=== PATIENT | female | born 2005 | race Caucasian/White ===

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

== ENCOUNTER 2024-03-15 00:44 | Emergency (ER) | payer OTHER, SELFPAY ==
[2024-03-15 00:45] VITALS: BP 129/96; PULSE 91; RESP 16; TEMP 36.4; O2SAT 97; BMI 28.3
[2024-03-15] MEDS: LACTATED RINGERS 1000ML 1,000 ML 999 ML IV (01:12)
[2024-03-15 01:13] LABS: Microscopic, Urine URINE MICROSCOPIC (MICROSCOPIC)
[2024-03-15 01:14] LABS: Blood, Urine Negative (Negative); Glucose,Urine (UA) 1+ (Negative); Leukocyte Esterase,Urine 3+ (Negative); Nitrate,Urine POSITIVE (Negative); Protein,Urine 2+ (Negative)
[2024-03-15 01:16] LABS: Albumin Level 4.4 g/dl (3.5-5.0); Chloride 108 mmol/L (98-107); Sodium 139 mmol/L (136-145)
[2024-03-15 01:19] LABS: Bilirubin,Urine 1+ (Negative); Color,Urine Orange (Yellow)
[2024-03-15 01:19] LABS: Alanine Aminotransferase 27 U/L (12-78); Albumin/Globulin Ratio 1.3 (1.1-1.8); Alkaline Phosphatase 74 U/L (38-126); Aspartate Amino Transferase 31 U/L (14-36); Bilirubin,Total 0.4 mg/dl (0.2-1.3); Blood Urea Nitrogen 8 mg/dl (7-17); Carbon Dioxide 26 mmol/L (22.0-30.0); Creatinine Clearance Estimated 143 mL/min (50-200); Estimated Glomerular Filt Rate 108 ml/min (>60); GFR (African American) 130 ML/MIN (>60); Globulin 3.5 g/dL (1.3-3.2); Total Protein,Serum 7.9 g/dl (6.3-8.2)
[2024-03-15 01:20] LABS: Calcium 8.9 mg/dl (8.4-10.2); Glucose 90 mg/dl (74-100)
[2024-03-15 01:20] LABS: Appearance,Urine Cloudy (Clear); Ketones,Urine TRACE (Negative)
[2024-03-15 01:21] LABS: HCG Qualitative, Serum Negative (Negative)
[2024-03-15 01:24] LABS: Basophils # 0.1 K/mm3 (0-0.2); Basophils % 0.9 % (0.1-2.0); Eosinophils # 0.1 K/mm3 (0.0-0.4); Eosinophils % 1.4 % (0.1-12.0); Hemoglobin 13.9 g/dL (12.2-16.2); Lymphocytes # 2.7 K/mm3 (0.7-4.5); Lymphocytes % 31.8 % (10-50); Mean Corpuscular HGB Conc 31.5 g/dL (31.8-35.4); Mean Corpuscular Volume 91.9 fl (81-99); Mean Platelet Volume 8.1 fl (7.4-10.4); Monocytes # 0.4 K/mm3 (0.1-1.0); Monocytes % 4.7 % (1.7-9.3); Neutrophils # 5.1 K/mm3 (1.8-7.8); Neutrophils % 61.2 % (37.0-80.0); Platelet Count 275 K/mm3 (142-424); Red Blood Count 4.79 M/mm3 (4.20-5.40); Red Cell Distribution Width 13.6 % (11.5-17.5); White Blood Count 8.3 K/mm3 (4.5-13.0)
[2024-03-15 01:32] LABS: INR 0.93 (0.9-1.1); Prothrombin Time 10.5 seconds (10.1-12.5)
[2024-03-15] MEDS: CEFTRIAXONE 1 GM 1 GM in 0.9 % SODIUM CHLORIDE 50 ML IV (01:37)
[2024-03-15] MEDS: KETOROLAC 30MG/ML VIAL 15 MG IV (01:37)
--- NOTE | 2024-03-15 01:37 | ED_ITS ---
Discharge Plan Disposition Patient Disposition: Home, Self-Care Condition: Good Prescriptions Prescriptions: New cefdinir 300 mg capsule 300 mg PO BID 10 Days Qty: 20 0RF ondansetron 4 mg tablet,disintegrating 4 mg PO Q6H PRN (Reason: nausea and vomiting) Qty: 10 0RF No Action amoxicillin 875 mg tablet 875 mg PO Q12H 10 Days Qty: 20 0RF fluticasone propionate [Flonase Allergy Relief] 50 mcg/actuation spray,suspension 1 - 2 spray intranasal DAILY Qty: 16 0RF Rx Instructions: administer into each nostril daily Referrals Follow up/Referrals: Joselito Currie MD [Primary Care Provider] - See instructions Activity Restrictions/Add. Instructions Additional Instructions/Restrictions: You were evaluated in the ER and are appropriate for discharge at this time. Take the prescribed cefdinir as directed, do not skip doses, do not stop taking it early. Take Tylenol, ibuprofen if needed for fevers or pain, do not exceed the recommended doses on the bottle. Take the prescribed ondansetron if needed for nausea. Drink plenty of water. Make an appointment with your primary care doctor for reevaluation in 2 to 3 days. Return to the ER with new, worsening, or otherwise concerning symptoms. Clinical Impressions Clinical Impression: UTI (urinary tract infection), Pyelonephritis Instructions Patient Instructions: DI for Acute Abdominal Pain Print Language Print Language: Turkish Discharge ED Provider: Catrachito Salguero General Adult HPI General Chief complaint: Abdominal Pain Stated complaint: lower abd pain, hip and back pain Time Seen by Provider: 03/15/24 01:05 Mode of Arrival: Ambulatory Source of Information: Patient Limitations: No Limitations Description of Symptoms (Recalled from ER Triage Doc. by RN): Pt presents with lower abdominal pain that radiate into her lower back and hip area since Saturday. Pt states she doesnt have a hx of kidney stones, denies any urinary symptoms, took 2 Azo today. LMP 04/06 History of Present Illness HPI narrative: Otherwise healthy 18-year-old female presents to the ER for complaints of lower abdominal pain radiating to her low back since Saturday. Patient denies any history of kidney stones but does report she had a kidney infection approximately 1 year ago. Patient reports taking Azo today. Most recent menstrual period was at the end of February. Patient reports nausea but no vomiting, she states she has not specifically had burning with urination, she does report taking Tylenol and ibuprofen 24 hours ago. Patient has not had any measured fevers at home. No other associated symptoms. Related Data Previous Rx's ?Medication ?Instructions ?Recorded amoxicillin 875 mg tablet 875 mg PO Q12H 10 days #20 tabs 10/15/22 fluticasone propionate 50 1 - 2 spray intranasal DAILY #16 10/15/22 mcg/actuation nasal grams spray,suspension (Flonase Allergy Relief) cefdinir 300 mg capsule 300 mg PO BID 10 days #20 caps 03/15/24 ondansetron 4 mg disintegrating 4 mg PO Q6H PRN nausea and 03/15/24 tablet vomiting #10 tabs Allergies Allergy/AdvReac Type Severity Reaction Status Date / Time No Known Allergies Allergy Verified 03/26/22 12:53 [facility] Disclaimer: The information contained in this section may have been updated after the patient was seen, as this information can be updated by other users. Medical History No significant past medical history Family History Other No significant family history Social History (Updated 08/06/22 @ 10:45 by Laney Stevenson RN) Smoking Status: Current every day smoker second hand exposure: No alcohol intake: never substance use type: denies use current occupational status: other Travel in the last 8 weeks: None ROS Obtained: Yes All systems reviewed & no additional complaints except as documented Positive ROS per HPI Physical Exam General General appearance: alert and in no apparent distress Head Head exam: atraumatic and normocephalic Eye Eye exam: Present PERRL and EOMI ENT ENT exam: Present mucous membranes moist Neck Neck exam: Present normal inspection and full ROM Chest Chest inspection: Present symmetric chest wall rise Respiratory Respiratory exam: Present normal lung sounds bilaterally; Absent respiratory distress, wheezes or stridor Cardiovascular Cardiovascular exam: Present regular rate and normal rhythm Abdominal Exam Abdominal exam: Present soft and tenderness (Diffuse low abdomen, mild); Absent distention, guarding, rebound or rigidity Extremities Exam Extremities exam: Present full ROM Back Exam Back exam: Present CVA tenderness (R) and CVA tenderness (L); Absent vertebral tenderness Neurological Exam Neurological exam: Present alert and oriented X3; Absent motor sensory deficit Psychiatric Psychiatric exam: Present normal affect and normal mood Skin Skin exam: Present warm and dry Medical Decision Making Medical Records Medical records reviewed: Yes I reviewed the patient's medical records. MR Comment: Patient has previously been evaluated for strep, migraines, and otitis media in the urgent care. Most recent antibiotic that she was prescribed from urgent care was amoxicillin in October 2022. John Inquiry Pt receiving controlled substance: No Vital Signs: 03/15/24 00:45 Temperature 97.6 F Temperature Source Oral Pulse Rate [Left] 91 H Respiratory Rate 16 Blood Pressure [Right Arm] 129/96 H Blood Pressure Mean [Right Arm] 107 Blood Pressure Source [Right Arm] Automatic Cuff Blood Pressure Position [Right Arm] Sitting 02 Sat by Pulse Oximetry 97 Oxygen Delivery Method Room Air Lab Data Lab Results 03/15/24 00:50: Urine Color [place], Urine Appearance Cloudy, Urine pH 6.0, Ur Specific [place] 1.010, Urine Protein 2+ A, Urine Glucose (UA) 1+, Urine Ketones Trace, Urine Blood Negative, Urine Nitrate Positive, Urine Bilirubin 1+ A, Urine Urobilinogen 4.0, Ur Leukocyte Esterase 3+ A 03/15/24 01:05: WBC 8.3, RBC 4.79, Hgb 13.9, Hct 44.0, MCV 91.9, MCH 29.0, MCHC 31.5 L, RDW 13.6, Plt Count 275, MPV 8.1, Neut % (Auto) 61.2, Lymph % (Auto) 31.8, [place] % (Auto) 4.7, Eos % (Auto) 1.4, Baso % (Auto) 0.9, Neut # (Auto) 5.1, Lymph # (Auto) 2.7, [place] # (Auto) 0.4, Eos # (Auto) 0.1, Baso # (Auto) 0.1, PT 10.5, INR 0.93, Sodium 139, Potassium 4.0, Chloride 108 H, Carbon Dioxide 26, Anion Gap 9.0, BUN 8, Creatinine 0.70, Estimated Creat Clear 143, Estimated GFR 108, Est GFR ( Amer) 130, Glucose 90, Calcium 8.9, Total Bilirubin 0.4, AST 31, ALT 27, Alkaline Phosphatase 74, Total Protein 7.9, Albumin 4.4, G lobulin 3.5 H, Albumin/Globulin Ratio 1.3, Serum HCG, Qual Negative 03/15/24 01:05 03/15/24 01:05 Orders (Tests/Meds): ED MEDICATIONS Generic Name Dose Route Start Last Admin Trade Name Freq PRN Reason Stop Dose Admin Lactated Ringer's 1,000 mls @ 999 mls/hr 03/15/24 01:07 03/15/24 01:12 Lactated Ringer's 1000 Ml Bag IV 03/15/24 02:07 999 mls/hr .Q1H1M ONE Administration Ceftriaxone Sodium 1 gm/ 50 mls @ 100 mls/hr 03/15/24 01:33 Sodium Chloride IV 03/15/24 02:02 Q24H ONE Discontinued Medications Generic Name Dose Route Start Last Admin Trade Name Freq PRN Reason Stop Dose Admin Acetaminophen 1,000 mg 03/15/24 01:33 Acetaminophen 500mg Tab PO 03/15/24 01:34 ONCE ONE Ketorolac Tromethamine 15 mg 03/15/24 01:33 Ketorolac 30mg/Ml Vial IV 03/15/24 01:34 ONCE ONE Ondansetron HCl 4 mg 03/15/24 01:33 Ondansetron 4mg Odt SL 03/15/24 01:34 ONCE ONE ORDERS Category Date Time Status CBC w/Auto Diff [Complete Blood Count Auto Diff] Stat Lab 03/15/24 01:05 Completed CMP [Comprehensive Metabolic Panel] Stat Lab 03/15/24 01:05 Completed HCG Qualitative, Serum Stat Lab 03/15/24 01:05 Completed PT INR [Prothrombin Time INR] Stat Lab 03/15/24 01:05 Completed Urinalysis and Microscopic Stat Lab 03/15/24 00:50 Results Urine Culture Stat Micro 03/15/24 00:50 Received Medical Decision Narrative: In summary, this 18-year-old female presents to the emergency department today with low abdominal pain, back pain, nausea. On initial evaluation patient is hemodynamically stable, afebrile, mild tenderness to palpation diffusely across the lower abdomen without rebound or guarding, no rigidity, mild CVA tenderness bilaterally. Differential diagnosis includes but is not limited to urinary tract infection, pyelonephritis, I considered the possibility of appendicitis but have low suspicion for this since patient does not have localizing abdominal pain, also considered possibility of kidney stone however patient is not having symptoms of renal colic has had stable symptoms for multiple days without severe pain. Based on these concerns, I ordered serum labs, urine studies, test. Patient received IV fluids initially in the ER. Labs reviewed and demonstrate no leukocytosis or anemia, platelets normal, PT/INR normal, CMP nonactionable, no findings of kidney dysfunction, test negative, UA positive for findings of infection with 3+ leukocyte esterase, positive nitrates. Patient received IV Rocephin, Toradol, ondansetron, Tylenol. She was updated on her lab findings. I do not believe imaging is indicated at this time. Labs are reassuring against systemic infection and since patient has stable vitals believe she is appropriate for discharge. I prescribed cefdinir, ondansetron for outpatient management. Patient was given instructions on symptomatic management, follow up instructions, and return precautions for the emergency department. Patient indicated understanding and was discharged in stable condition. Critical Care Critical Care Time Critical Care Time: No
[2024-03-15] MEDS: ACETAMINOPHEN 500MG TAB 1000 MG PO (01:38)
[2024-03-15] MEDS: ONDANSETRON 4MG ODT 4 MG SL (01:41)
[2024-03-15 02:01] VITALS: BP 129/96; PULSE 81; RESP 16; TEMP 36.4; O2SAT 98
[2024-03-15 03:04] LABS: Bacteria,Urine 4+ /lpf
--- NOTE | 2024-03-16 09:33 | PC.NURSE ---
discussed prelim urine results with , pt dc with cefdinir, ntd
--- NOTE | 2024-03-17 11:12 | PC.NURSE ---
discussed urine final results with jocelyn Trinh with shan[facility], ntd
== END 2024-03-15 02:02 | disposition home or self-care (01) ==
PROVIDERS: Emergency Provider Emergency Medicine; PCP Family Medicine
DX: N12 Tubulo-interstitial nephritis, not specified as acute or chronic (principal); R10.30 Lower abdominal pain, unspecified; M54.50 Low back pain, unspecified; R11.0 Nausea; F17.200 Nicotine dependence, unspecified, uncomplicated
CPT/HCPCS: 80053; 81001; 84703; 85025; 85610; 87086; 87088; 87186; 96361; 96365; 96375; 99285; J0696; J1885; J7120; Q0162

== ENCOUNTER 2024-03-25 11:49 | Emergency (ER) | payer OTHER, SELFPAY ==
[2024-03-25] VITALS (10 sets, daily range): BP systolic 104–133; BP diastolic 58–83; PULSE 61–79; RESP 16–20; TEMP 36.7–36.9; O2SAT 98–100; BMI 304.1; BMI 29.8
[2024-03-25 12:23] LABS: Apearance,Urine Cloudy (Clear); Color,Urine Dark Yellow (Yellow); Glucose,Urine (UA) Negative (Negative); PH,Urine 5.5 (5.0-8.5); Protein,Urine Negative (Negative)
[2024-03-25 12:24] LABS: Bilirubin,Urine Negative (Negative); Blood, Urine Negative (Negative); Ketones,Urine Negative (Negative); UTC Leukocyte Esterase,Urine Trace (Negative); UTC Nitrate,Urine Negative (Negative); Urobilinogen,Urine 1 EU/dl (0.2)
--- NOTE | 2024-03-25 12:35 | ED_ITS ---
Discharge Plan Disposition Patient Disposition: Home, Self-Care Condition: Good Prescriptions Prescriptions: New dicyclomine 20 mg tablet 20 mg PO QID PRN (Reason: abdominal pain) Qty: 20 0RF ketorolac 10 mg tablet 10 mg PO Q8H PRN (Reason: pain) Qty: 14 0RF Rx Instructions: maximum total duration of 5 days from all oral, intranasal, or parenteral formulations Referrals Follow up/Referrals: Joselito Currie MD [Primary Care Provider] - See instructions Abraham Harrison DO [Staff Physician] - See instructions Activity Restrictions/Add. Instructions Additional Instructions/Restrictions: You were evaluated in the emergency department today. Please follow-up closely with a primary care provider. 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 You may also take Tylenol every 4-6 hours as needed. Return to the emergency department for new or worsening symptoms. Clinical Impressions Clinical Impression: Abdominal pain Stand Alone Forms Stand Alone Forms: Work/School Release Instructions Patient Instructions: DI for Acute Abdominal Pain Print Language Print Language: Italian Discharge ED Provider: Nay Gamino [facility] General Chief complaint: Abdominal Pain Stated complaint: Pain on R side, from shoulder to hip Mode of Arrival: Ambulatory Source of Information: Patient Time Seen by Provider: 03/25/24 12:41 Description of Symptoms (Recalled from Triage Doc. by RN): RIGHT SIDE PAIN, RECENT KIDNEY INFECTION ON THE LEFT HEENT Symptoms (Recalled from RN notes): No Resp Symptoms (Recalled from RN notes): No Skin Symptoms (Recalled from RN notes): No MS Symptoms (Recalled from RN notes): No Functional Status (Recalled from RN notes): WNL History of Present Illness Provider Complaint: Patient states that she was recently seen and treated in the ED for kidney infection but the pain was on her left side States on Saturday she started with pain on her right side of her abdomen that has progressively got worse States the pain in her right lower abdomen is worse with walking, movement and position changes States last BM was yesterday and normal Denies known fever and rates pain a 7 at this time Related Data Previous Rx's ?Medication ?Instructions ?Recorded dicyclomine 20 mg tablet 20 mg PO QID PRN abdominal pain 03/25/24 #20 tabs ketorolac 10 mg tablet 10 mg PO Q8H PRN pain #14 tabs 03/25/24 Allergies Allergy/AdvReac Type Severity Reaction Status Date / Time No Known Allergies Allergy Verified 03/26/22 12:53 Worker's Comp Is this a Worker's Comp case?: No [facility] Disclaimer: The information contained in this section may have been updated after the patient was seen, as this information can be updated by other users. Medical History No significant past medical history Family History Other No significant family history Social History (Updated 08/06/22 @ 10:45 by Laney Stevenson RN) Smoking Status: Current every day smoker second hand exposure: No alcohol intake: never substance use type: denies use current occupational status: other Travel in the last 8 weeks: None ROS Obtained: Yes All systems reviewed & no additional complaints except as documented and Yes Systems reviewed as appropriate & no additional complaints except as documented Constitutional Constitutional: Reports system reviewed and no additional complaints, except as documented and Reports as per HPI ENT Ears, Nose, Mouth, and Throat: Reports system reviewed and no additional complaints, except as documented and Reports as per HPI Cardiovascular Cardiovascular: Reports system reviewed and no additional complaints, except as documented and Reports as per HPI Respiratory Respiratory: Reports system reviewed and no additional complaints, except as documented and Reports as per HPI Gastrointestinal Gastrointestingal: Reports system reviewed and no additional complaints, except as documented, as per HPI and abdominal pain Physical Exam General General appearance: alert and in no apparent distress ENT ENT exam: Present mucous membranes moist Respiratory Respiratory exam: Present normal lung sounds bilaterally; Absent respiratory distress or wheezes Cardiovascular Cardiovascular exam: Present regular rate, normal rhythm and normal heart sounds Abdominal Exam Abdominal exam: Present soft, tenderness (reports tenderness worse in right lower quad with palpation) and Rovsing's sign (reports pain/pressure right lower quad with palpation of left lower quad) Neurological Exam Neurological exam: Present alert, oriented X3 and normal gait Medical Decision Making Medical Records Screening: Per USPSTF and CDC recommendations, given the prevalence of disease in our region, it is our hospital?s policy to screen for HIV and viral Hepatitis for all patients aged 18 and over and those with ongoing risk factors. John Inquiry Pt receiving controlled substance: No John was queried for this patient: No Vital Signs: 03/25/24 12:16 Temperature 98.2 F Temperature Source Oral Pulse Rate [Left Brachial] 73 Respiratory Rate 20 Blood Pressure [Left Arm] 116/58 L Blood Pressure Mean [Left Arm] 77 02 Sat by Pulse Oximetry 98 Lab Data Lab results reviewed: Yes I reviewed the patient's lab results. Lab Results 03/25/24 12:21: Urine Color Dark yellow, Urine Appearance Cloudy, Urine pH 5.5, Ur Specific [place] 1.030, Urine Protein Negative, Urine Glucose (UA) Negative, Urine Ketones Negative, Urine Blood Negative, Urine Nitrate Negative, Urine Bilirubin Negative, Urine Urobilinogen 1, Ur Leukocyte Esterase Trace 03/25/24 12:49 03/25/24 12:49 Orders (Tests/Meds): ORDERS Category Date Time Status Urine Culture Stat Micro 03/25/24 12:21 Ordered Medical Decision Narrative: Patient reports pain in the right side of abdomen worse with movement, walking and position changes since Saturday reports pain is worse today and more so in the right lower quad Denies symptoms of UTI like she had a few weeks ago pain has got progressively worse since Saturday Discussed with patient and due to complaints and upon examination reports pain in right lower quad with palpation and pain/pressure like feeling in right lower quad with palpation of the left lower abdomen (Rovsings sign) therefore will transfer to the ED for further work up and evaluation Patient agreeable with Transfer patient to be moved to room 8
--- NOTE | 2024-03-25 13:34 | ED_ITS ---
Discharge Plan Disposition Patient Disposition: Home, Self-Care Condition: Good Prescriptions Prescriptions: New dicyclomine 20 mg tablet 20 mg PO QID PRN (Reason: abdominal pain) Qty: 20 0RF ketorolac 10 mg tablet 10 mg PO Q8H PRN (Reason: pain) Qty: 14 0RF Rx Instructions: maximum total duration of 5 days from all oral, intranasal, or parenteral formulations Referrals Follow up/Referrals: Joselito Currie MD [Primary Care Provider] - See instructions Abraham Harrison DO [Staff Physician] - See instructions Activity Restrictions/Add. Instructions Additional Instructions/Restrictions: You were evaluated in the emergency department today. Please follow-up closely with a primary care provider. supervisor rod placing your prescriptions and take them as needed for symptoms. You may also take Tylenol every 4-6 hours as needed. Return to the emergency department for new or worsening symptoms. Clinical Impressions Clinical Impression: Abdominal pain Stand Alone Forms Stand Alone Forms: Work/School Release Instructions Patient Instructions: DI for Acute Abdominal Pain Print Language Print Language: [place] Discharge ED Provider: Nay Gamion General Adult HPI <Jeramy De Leon MD - Last Filed: 03/25/24 15:03> General Chief complaint: Abdominal Pain Stated complaint: Pain on R side, from shoulder to hip Time Seen by Provider: 03/25/24 12:41 Mode of Arrival: Ambulatory Source of Information: Patient Limitations: No Limitations Description of Symptoms (Recalled from ER Triage Doc. by RN): r side pain,painful urination History of Present Illness HPI narrative: Please note that above description of symptoms, in this electronic medical record under categorization of recalled from ER triage doctor by RN are reflective of an initial nursing assessment, however, is not reflective of my full history and physical exam that was personally taken and clarified. Consequentially, this preceding description of symptoms, which may include the patient's categorized chief complaint in the EMR, do not reflect my personal clinical impression, and the ultimate description of history of present illness and patient stated complaints should be deferred to this section of the note. Unless stated otherwise or congruent with this section of the note, additional signs, symptoms, or incongruence should be interpreted as inaccurate with my clinical impression. Related Data Previous Rx's ?Medication ?Instructions ?Recorded dicyclomine 20 mg tablet 20 mg PO QID PRN abdominal pain 03/25/24 #20 tabs ketorolac 10 mg tablet 10 mg PO Q8H PRN pain #14 tabs 03/25/24 Allergies Allergy/AdvReac Type Severity Reaction Status Date / Time No Known Allergies Allergy Verified 03/26/22 12:53 PFS <Jeramy De Leon MD - Last Filed: 03/25/24 15:03> [facility] Disclaimer: The information contained in this section may have been updated after the patient was seen, as this information can be updated by other users. Medical History No significant past medical history Family History Other No significant family history Social History (Updated 08/06/22 @ 10:45 by Laney Stevenson RN) Smoking Status: Current every day smoker second hand exposure: No alcohol intake: never substance use type: denies use current occupational status: other Travel in the last 8 weeks: None <Jeramy De Leon MD - Last Filed: 03/25/24 15:03> ROS Obtained: Yes All systems reviewed & no additional complaints except as documented Physical Exam <Jeramy De Leon MD - Last Filed: 03/25/24 15:03> General General appearance: alert and in no apparent distress Head Head exam: atraumatic and normocephalic Eye Eye exam: Present normal appearance, PERRL and EOMI Neck Neck exam: Present normal inspection, full ROM and trachea midline Respiratory Respiratory exam: Present normal lung sounds bilaterally; Absent respiratory distress, wheezes, stridor, accessory muscle use or prolonged expiratory phase Cardiovascular Cardiovascular exam: Present regular rate, normal rhythm and other (Pulses equal symmetric in upper and lower extremities) Abdominal Exam Abdominal exam: Present soft; Absent distention, tenderness, guarding, rebound or pulsatile mass Extremities Exam Extremities exam: Absent edema Neurological Exam Neurological exam: Present alert, oriented X3 and CN II-XII intact; Absent motor sensory deficit Skin Skin exam: Present warm and dry; Absent diaphoresis or erythema Medical Decision Making <Jeramy De Leon MD - Last Filed: 03/25/24 15:03> Medical Records Medical records reviewed: Yes I reviewed the patient's medical records. Screening: Per USPSTF and CDC recommendations, given the prevalence of disease in our region, it is our hospital?s policy to screen for HIV and viral Hepatitis for all patients aged 18 and over and those with ongoing risk factors. John Inquiry Pt receiving controlled substance: No John was queried for this patient: No Vital Signs: 03/25/24 12:16 03/25/24 12:42 03/25/24 13:01 Temperature 98.2 F 98.4 F Temperature Source Oral Oral Pulse Rate 79 Pulse Rate [Left Brachial] 73 77 Respiratory Rate 20 18 Blood Pressure 124/82 Blood Pressure [Left Arm] 116/58 L 124/80 Blood Pressure Mean [Left Arm] 77 94 Blood Pressure Source 02 Sat by Pulse Oximetry 98 99 100 Oxygen Delivery Method Room Air 03/25/24 13:30 03/25/24 14:02 03/25/24 14:30 Temperature Temperature Source Pulse Rate 70 78 70 Pulse Rate [Left Brachial] Respiratory Rate Blood Pressure 121/72 115/79 119/70 Blood Pressure [Left Arm] Blood Pressure Mean [Left Arm] Blood Pressure Source 02 Sat by Pulse Oximetry 98 100 98 Oxygen Delivery Method 03/25/24 15:02 03/25/24 15:31 03/25/24 16:00 Temperature Temperature Source Pulse Rate 78 75 61 Pulse Rate [Left Brachial] Respiratory Rate Blood Pressure 116/83 133/83 104/58 L Blood Pressure [Left Arm] Blood Pressure Mean [Left Arm] Blood Pressure Source 02 Sat by Pulse Oximetry 99 99 99 Oxygen Delivery Method Room Air Room Air Room Air 03/25/24 16:44 Temperature 98.0 F Temperature Source Oral Pulse Rate 75 Pulse Rate [Left Brachial] Respiratory Rate 16 Blood Pressure 126/71 Blood Pressure [Left Arm] Blood Pressure Mean [Left Arm] Blood Pressure Source Automatic Cuff 02 Sat by Pulse Oximetry Oxygen Delivery Method Room Air Lab Data Lab Results 03/25/24 12:21: Urine Color Dark yellow, Urine Appearance Cloudy, Urine pH 5.5, Ur Specific [place] 1.030, Urine Protein Negative, Urine Glucose (UA) Negative, Urine Ketones Negative, Urine Blood Negative, Urine Nitrate Negative, Urine Bilirubin Negative, Urine Urobilinogen 1, Ur Leukocyte Esterase Trace 03/25/24 12:49: WBC 7.8, RBC 4.48, Hgb 13.3, Hct 42.1, MCV 93.9, MCH 29.8, MCHC 31.7 L, RDW 13.4, Plt Count 330, MPV 8.2, Neut % (Auto) 74.6, Lymph % (Auto) 18.4, Millard % (Auto) 5.1, Eos % (Auto) 1.1, Baso % (Auto) 0.8, Neut # (Auto) 5.8, Lymph # (Auto) 1.4, Millard # (Auto) 0.4, Eos # (Auto) 0.1, Baso # (Auto) 0.1, Sodium 139, Potassium 4.0, Chloride 108 H, Carbon Dioxide 25, Anion Gap 10.0, BUN 10, Creatinine 0.80, Estimated Creat Clear 132, Estimated GFR 92, Est GFR ( Amer) 112, Glucose 91, Calcium 9.0, Total Bilirubin 0.6, AST 29, ALT 35, Alkaline Phosphatase 83, Total Protein 8.1, Albumin 4.5, Globulin 3.6 H, Albumin/Globulin Ratio 1.3, Lipase 77, HCG, Quant < 2, HIV 1&2 Antibody Rapid Nonreactive 03/25/24 13:57: Urine Color Yellow, Urine Appearance Clear, Urine pH 6.0, Ur Specific [place] 1.020, Urine Protein Negative, Urine Glucose (UA) Negative, Urine Ketones Negative, Urine Blood Negative, Urine Nitrate Negative, Urine Bilirubin Negative, Urine Urobilinogen 0.2, Ur Leukocyte Esterase 1+ A, Urine RBC None, Urine WBC 10-20, Ur Squamous Epith Cells 10-20, Urine Bacteria Trace, Urine Mucus Trace 03/25/24 12:49 03/25/24 12:49 Orders (Tests/Meds): ED MEDICATIONS Discontinued Medications Generic Name Dose Route Start Last Admin Trade Name Karrie PRN Reason Stop Dose Admin Acetaminophen 1,000 mg 03/25/24 14:59 03/25/24 15:05 Acetaminophen 500mg Tab PO 03/25/24 15:00 1,000 mg ONCE ONE Administration Dicyclomine HCl 20 mg 03/25/24 16:18 03/25/24 16:20 Dicyclomine 10mg Capsule PO 03/25/24 16:19 20 mg ONCE ONE Administration Iopamidol 75 ml 03/25/24 15:03 03/25/24 15:05 Iopamidol-370 (76%);100ml Bottle IV 03/25/24 15:04 75 ml ONCE ONE Administration Ketorolac Tromethamine 15 mg 03/25/24 14:59 03/25/24 15:05 Ketorolac 30mg/Ml Vial IV 03/25/24 15:00 15 mg ONCE ONE Administration Sodium Chloride 10 ml 03/25/24 15:03 03/25/24 15:05 Sodium Chloride 0.9% 10ml Syr (Rad Only) IV 03/25/24 15:04 10 ml ONCE ONE Administration ORDERS Category Date Time Status CT abdomen pelvis w con Stat Cat Scan 03/25/24 14:41 Completed POCUS Point of Care (ER Only) Stat Exams 03/25/24 13:32 Completed CBC w/Auto Diff [Complete Blood Count Auto Diff] Stat Lab 03/25/24 12:49 Completed CMP [Comprehensive Metabolic Panel] Stat Lab 03/25/24 12:49 Completed HCG,Quantitative Stat Lab 03/25/24 12:49 Completed HIV (1&2) Antibody Rapid Stat Lab 03/25/24 12:49 Completed Hep C Ab with Reflex to RNA Stat Lab 03/25/24 12:49 Received Lipase Stat Lab 03/25/24 12:49 Completed Trichomonas Vaginalis, JANEY Stat Lab 03/25/24 13:57 Received UA [Urinalysis and Microscopic] Stat Lab 03/25/24 13:57 Completed Urine Culture Stat Micro 03/25/24 12:07 Received Medical Decision Narrative: 18-year-old female no relevant medical history presenting with abdominal pain. Patient states for the last 2 days she has been having abdominal pain. Is primarily right-sided, does not radiate, associated nausea without vomiting. Last bowel movement was today and normal for her. No abnormal vaginal discharge or bleeding. No urinary symptoms. States that she recently got over a urinary tract infection and finished antibiotic yesterday. Has tried Tylenol Motrin without much help. Nothing in particular makes it better or worse. No fevers or chills, or any other complaints. Currently mild to moderate in intensity. History was obtained via conversation with patient. On arrival, patient hemodynamically stable, alert, oriented x4, appropriate, GCS 15, moving all extremities spontaneously, pupils equal and reactive to light. Full physical exam performed and significant for well-appearing female who is in no acute distress. Abdomen is soft, nondistended. Is tender in right upper quadrant and right lower quadrant. Sahu sign is positive, no McBurney's point tenderness. No peritonitis, rebound or rigidity. No flank tenderness.. Differential includes PUD, gastritis, enteritis, gastroenteritis, pancreatitis, SBO, colitis, diverticulitis, nephrolithiasis, UTI, , cholecystitis, choledocholithiasis, appendicitis, hepatitis, torsion, aortic pathology, mesenteric ischemia among others. Patient placed on continuous cardiac monitoring and continuous pulse ox with initial blood pressure 116/58, heart rate 73, saturation 98% on room air. Patient was given Toradol and acetaminophen for symptomatic management. Independent interpretation of workup demonstrates nonactionable CBC or chemistry, nonactionable urinalysis, negative . Bedside [id number] ultrasound with normal right upper quadrant findings, no abnormalities of the liver or the kidney on the right. Conversation was had with patient regarding home-going versus CT given benign workup and benign abdominal exam, patient opting for CT scan. This was ordered. Prior to CT scan being performed and disposition, care handed off to oncoming physician. Logistics Assistant disclaimer Much of this encounter note is an electronic prototype assembler electronics spoken language to printed text. Electronic prototype assembler electronics of the spoken language may permit errors. Although I have reviewed the note, some errors may still exist. <Nay Gamino, DO - Last Filed: 03/25/24 18:06> Vital Signs: 03/25/24 12:16 03/25/24 12:42 03/25/24 13:01 Temperature 98.2 F 98.4 F Temperature Source Oral Oral Pulse Rate 79 Pulse Rate [Left Brachial] 73 77 Respiratory Rate 20 18 Blood Pressure 124/82 Blood Pressure [Left Arm] 116/58 L 124/80 Blood Pressure Mean [Left Arm] 77 94 Blood Pressure Source 02 Sat by Pulse Oximetry 98 99 100 Oxygen Delivery Method Room Air 03/25/24 13:30 03/25/24 14:02 03/25/24 14:30 Temperature Temperature Source Pulse Rate 70 78 70 Pulse Rate [Left Brachial] Respiratory Rate Blood Pressure 121/72 115/79 119/70 Blood Pressure [Left Arm] Blood Pressure Mean [Left Arm] Blood Pressure Source 02 Sat by Pulse Oximetry 98 100 98 Oxygen Delivery Method 03/25/24 15:02 03/25/24 15:31 03/25/24 16:00 Temperature Temperature Source Pulse Rate 78 75 61 Pulse Rate [Left Brachial] Respiratory Rate Blood Pressure 116/83 133/83 104/58 L Blood Pressure [Left Arm] Blood Pressure Mean [Left Arm] Blood Pressure Source 02 Sat by Pulse Oximetry 99 99 99 Oxygen Delivery Method Room Air Room Air Room Air 03/25/24 16:44 Temperature 98.0 F Temperature Source Oral Pulse Rate 75 Pulse Rate [Left Brachial] Respiratory Rate 16 Blood Pressure 126/71 Blood Pressure [Left Arm] Blood Pressure Mean [Left Arm] Blood Pressure Source Automatic Cuff 02 Sat by Pulse Oximetry Oxygen Delivery Method Room Air Lab Data Lab Results 03/25/24 12:21: Urine Color Dark yellow, Urine Appearance Cloudy, Urine pH 5.5, Ur Specific [place] 1.030, Urine Protein Negative, Urine Glucose (UA) Negative, Urine Ketones Negative, Urine Blood Negative, Urine Nitrate Negative, Urine Bilirubin Negative, Urine Urobilinogen 1, Ur Leukocyte Esterase Trace 03/25/24 12:49: WBC 7.8, RBC 4.48, Hgb 13.3, Hct 42.1, MCV 93.9, MCH 29.8, MCHC 31.7 L, RDW 13.4, Plt Count 330, MPV 8.2, Neut % (Auto) 74.6, Lymph % (Auto) 18.4, Millard % (Auto) 5.1, Eos % (Auto) 1.1, Baso % (Auto) 0.8, Neut # (Auto) 5.8, Lymph # (Auto) 1.4, Millard # (Auto) 0.4, Eos # (Auto) 0.1, Baso # (Auto) 0.1, Sodium 139, Potassium 4.0, Chloride 108 H, Carbon Dioxide 25, Anion Gap 10.0, BUN 10, Creatinine 0.80, Estimated Creat Clear 132, Estimated GFR 92, Est GFR ( Amer) 112, Glucose 91, Calcium 9.0, Total Bilirubin 0.6, AST 29, ALT 35, Alkaline Phosphatase 83, Total Protein 8.1, Albumin 4.5, Globulin 3.6 H, Albumin/Globulin Ratio 1.3, Lipase 77, HCG, Quant < 2, HIV 1&2 Antibody Rapid Nonreactive 03/25/24 13:57: Urine Color Yellow, Urine Appearance Clear, Urine pH 6.0, Ur Specific [place] 1.020, Urine Protein Negative, Urine Glucose (UA) Negative, Urine Ketones Negative, Urine Blood Negative, Urine Nitrate Negative, Urine Bilirubin Negative, Urine Urobilinogen 0.2, Ur Leukocyte Esterase 1+ A, Urine RBC None, Urine WBC 10-20, Ur Squamous Epith Cells 10-20, Urine Bacteria Trace, Urine Mucus Trace Orders (Tests/Meds): ED MEDICATIONS Discontinued Medications Generic Name Dose Route Start Last Admin Trade Name Karrie PRN Reason Stop Dose Admin Acetaminophen 1,000 mg 03/25/24 14:59 03/25/24 15:05 Acetaminophen 500mg Tab PO 03/25/24 15:00 1,000 mg ONCE ONE Administration Dicyclomine HCl 20 mg 03/25/24 16:18 03/25/24 16:20 Dicyclomine 10mg Capsule PO 03/25/24 16:19 20 mg ONCE ONE Administration Iopamidol 75 ml 03/25/24 15:03 03/25/24 15:05 Iopamidol-370 (76%);100ml Bottle IV 03/25/24 15:04 75 ml ONCE ONE Administration Ketorolac Tromethamine 15 mg 03/25/24 14:59 03/25/24 15:05 Ketorolac 30mg/Ml Vial IV 03/25/24 15:00 15 mg ONCE ONE Administration Sodium Chloride 10 ml 03/25/24 15:03 03/25/24 15:05 Sodium Chloride 0.9% 10ml Syr (Rad Only) IV 03/25/24 15:04 10 ml ONCE ONE Administration ORDERS Category Date Time Status CT abdomen pelvis w con Stat Cat Scan 03/25/24 14:41 Completed POCUS Point of Care (ER Only) Stat Exams 03/25/24 13:32 Completed CBC w/Auto Diff [Complete Blood Count Auto Diff] Stat Lab 03/25/24 12:49 Completed CMP [Comprehensive Metabolic Panel] Stat Lab 03/25/24 12:49 Completed HCG,Quantitative Stat Lab 03/25/24 12:49 Completed HIV (1&2) Antibody Rapid Stat Lab 03/25/24 12:49 Completed Hep C Ab with Reflex to RNA Stat Lab 03/25/24 12:49 Received Lipase Stat Lab 03/25/24 12:49 Completed Trichomonas Vaginalis, JANEY Stat Lab 03/25/24 13:57 Received UA [Urinalysis and Microscopic] Stat Lab 03/25/24 13:57 Completed Urine Culture Stat Micro 03/25/24 12:07 Received Medical Decision Narrative: 18-year-old female no relevant medical history presenting with abdominal pain. Patient states for the last 2 days she has been having abdominal pain. Is primarily right-sided, does not radiate, associated nausea without vomiting. Last bowel movement was today and normal for her. No abnormal vaginal discharge or bleeding. No urinary symptoms. States that she recently got over a urinary tract infection and finished antibiotic yesterday. Has tried Tylenol Motrin without much help. Nothing in particular makes it better or worse. No fevers or chills, or any other complaints. Currently mild to moderate in intensity. History was obtained via conversation with patient. On arrival, patient hemodynamically stable, alert, oriented x4, appropriate, GCS 15, moving all extremities spontaneously, pupils equal and reactive to light. Full physical exam performed and significant for well-appearing female who is in no acute distress. Abdomen is soft, nondistended. Is tender in right upper quadrant and right lower quadrant. Sahu sign is positive, no McBurney's point tenderness. No peritonitis, rebound or rigidity. No flank tenderness.. Differential includes PUD, gastritis, enteritis, gastroenteritis, pancreatitis, SBO, colitis, diverticulitis, nephrolithiasis, UTI, , cholecystitis, choledocholithiasis, appendicitis, hepatitis, torsion, aortic pathology, mesenteric ischemia among others. Patient placed on continuous cardiac monitoring and continuous pulse ox with initial blood pressure 116/58, heart rate 73, saturation 98% on room air. Patient was given Toradol and acetaminophen for symptomatic management. Independent interpretation of workup demonstrates nonactionable CBC or chemistry, nonactionable urinalysis, negative . Bedside [id number] ultrasound with normal right upper quadrant findings, no abnormalities of the liver or the kidney on the right. Conversation was had with patient regarding home-going versus CT given benign workup and benign abdominal exam, patient opting for CT scan. This was ordered. Prior to CT scan being performed and disposition, care handed off to oncoming physician. Logistics Assistant disclaimer Much of this encounter note is an electronic prototype assembler electronics spoken language to printed text. Electronic prototype assembler electronics of the spoken language may permit errors. Although I have reviewed the note, some errors may still exist. DO Stevenson: On my assessment of the patient, she is lying comfortably in bed in no acute distress. She complains that she still having right-sided abdominal pain, but abdominal exam is benign. Vitals are normal on cardiac telemetry. Labs are reassuring with normal white count, normal liver enzymes, normal lipase, normal kidney function, urine is contaminated with squamous cells but not a slam dunk for infection, and negative test. CT scan does not demonstrate any acute surgical pathology such as cholecystitis or appendicitis. She also does not have any visualized large ovarian cyst, though she does have some trace pelvic free fluid. This could be related to ruptured ovarian cyst potentially which may cause her pain. She also has prominence of her left ureter but no pain on the left side or urinary symptoms. Right upper quadrant ultrasound reassuring per previous provider. Ultimately, feel we have excluded life-threatening pathology as a cause of the patient's abdominal pain. I feel she is appropriate for discharge with close follow-up with primary care. She was given prescriptions for Bentyl and Toradol for symptomatic improvement of her pain as well as instructions for close outpatient follow-up and strict return precautions. She was discharged after all questions were answered. Procedures <Jeramy De Leon MD - Last Filed: 03/25/24 15:03> Limited Ultrasound Indication:: Limited RUQ ultrasound Indication: Abdominal pain Identified structures: -Gallbladder -Gallbladder wall -Common bile duct -Liver Findings: Sonographic Sahu sign: Absent Gallstones: Absent Sludge: Absent Pericholecystic fluid: Absent Maximal GB wall thickness (mm) (normal is </= 3mm): Normal Common bile duct width (mm) (normal is </= 6mm): Normal Gallbladder width (cm) (normal is < 4cm): Normal Gallbladder length (cm) (normal is < 10cm): Normal Impression: Normal right upper quadrant ultrasound Images were saved to permanent archive The study was technically adequate CPT 98112-41 This study was performed by me, and I personally interpreted all images/videos. Based on my clinical judgement, these images were adequate and did not necessitate further imaging. Critical Care <Jeramy De Leon MD - Last Filed: 03/25/24 15:03> Critical Care Time Critical Care Time: No
[2024-03-25 13:41] LABS: Albumin Level 4.5 g/dl (3.5-5.0); Basophils # 0.1 K/mm3 (0-0.2); Basophils % 0.8 % (0.1-2.0); Chloride 108 mmol/L (98-107); Eosinophils # 0.1 K/mm3 (0.0-0.4); Eosinophils % 1.1 % (0.1-12.0); Hematocrit 42.1 % (37.0-47.0); Hemoglobin 13.3 g/dL (12.2-16.2); Lymphocytes # 1.4 K/mm3 (0.7-4.5); Lymphocytes % 18.4 % (10-50); Mean Corpuscular HGB Conc 31.7 g/dL (31.8-35.4); Mean Corpuscular Hemoglobin 29.8 pg (27.0-31.2); Mean Corpuscular Volume 93.9 fl (81-99); Mean Platelet Volume 8.2 fl (7.4-10.4); Monocytes # 0.4 K/mm3 (0.1-1.0); Monocytes % 5.1 % (1.7-9.3); Neutrophils # 5.8 K/mm3 (1.8-7.8); Neutrophils % 74.6 % (37.0-80.0); Platelet Count 330 K/mm3 (142-424); Red Blood Count 4.48 M/mm3 (4.20-5.40); Red Cell Distribution Width 13.4 % (11.5-17.5); Sodium 139 mmol/L (136-145); White Blood Count 7.8 K/mm3 (4.5-13.0)
[2024-03-25 13:44] LABS: Alanine Aminotransferase 35 U/L (12-78); Albumin/Globulin Ratio 1.3 (1.1-1.8); Alkaline Phosphatase 83 U/L (38-126); Aspartate Amino Transferase 29 U/L (14-36); Bilirubin,Total 0.6 mg/dl (0.2-1.3); Blood Urea Nitrogen 10 mg/dl (7-17); Carbon Dioxide 25 mmol/L (22.0-30.0); Creatinine Clearance Estimated 132 mL/min (50-200); Estimated Glomerular Filt Rate 92 ml/min (>60); GFR (African American) 112 ML/MIN (>60); Globulin 3.6 g/dL (1.3-3.2); Lipase 77 U/L (23-300); Total Protein,Serum 8.1 g/dl (6.3-8.2)
[2024-03-25 13:45] LABS: Glucose 91 mg/dl (74-100)
--- NOTE | 2024-03-25 13:46 | PC.NURSE ---
Lab called and they report they do not have a urine sample. I checked with the [facility] and they state they sent it over an hr ago. I called lab again, s/w Annalise and they states they still can't find it. Pt will try to give another sample.
[2024-03-25 14:02] LABS: HCG,Quantitative < 2 mIU/ml (0-5.42)
--- NOTE | 2024-03-25 14:03 | PC.NURSE ---
Urine sample sent from ER to Lab.
[2024-03-25 14:05] LABS: Microscopic, Urine URINE MICROSCOPIC (MICROSCOPIC)
[2024-03-25 14:14] LABS: Appearance,Urine CLEAR (Clear); Bilirubin,Urine Negative (Negative); Blood, Urine Negative (Negative); Color,Urine YELLOW (Yellow); Glucose,Urine (UA) Negative (Negative); Ketones,Urine Negative (Negative); Leukocyte Esterase,Urine 1+ (Negative); Nitrate,Urine Negative (Negative); Protein,Urine Negative (Negative); Urobilinogen,Urine 0.2 EU/dl (0.2)
--- NOTE | 2024-03-25 14:41 | CT_ITS ---
FINAL REPORT TECHNIQUE: After the administration of oral and intravenous contrast, axial images were obtained through the abdomen and pelvis by computed tomography. The study was performed with techniques to keep radiation dose as low as reasonably achievable, (ALARA). Individual dose reduction techniques using automated exposure control or adjustment of mA and/or kV according to the patient's size were employed. CLINICAL HISTORY: RUQ and RLQ pain with motion, negative US and labs FINDINGS: Abdomen: The lung bases are clear. The liver parenchyma is homogeneous. The gallbladder is present. The spleen, pancreas, and adrenals are unremarkable. There is prominence of the left renal collecting system. No definite obstructing focus is identified. The transition point appears to be at the level of the left UPJ. The aorta is normal in caliber. There is no free fluid or adenopathy. Pelvis: The appendix is not well visualized. The uterus is anteverted. Nabothian cysts are seen in the lower uterine segment. The urinary bladder is unremarkable. There is a small amount of pelvic free fluid. There is no adenopathy. 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 Pelvic free fluid which is nonspecific but favored to be physiologic in reproductive age patient. Reviewed, Interpreted and Dictated by Shmuel Flroes MD Transcribed by Sana Trejo Authenticated and [facility]
[2024-03-25 14:43] LABS: Bacteria,Urine Trace /lpf; Mucus,Urine Trace /lpf
--- NOTE | 2024-03-25 14:51 | PC.NURSE ---
Pt gone to RAD
[2024-03-25 15:04] LABS: HIV (1&2) Antibody Rapid NONREACTIVE (NONREACTIVE)
[2024-03-25] MEDS: SODIUM CHLORIDE 0.9% 10ML SYR (RAD ONLY) 10 ML IV (15:05)
[2024-03-25] MEDS: IOPAMIDOL-370 (76%);100ML BOTTLE 75 ML IV (15:05)
[2024-03-25] MEDS: KETOROLAC 30MG/ML VIAL 15 MG IV (15:05)
[2024-03-25] MEDS: ACETAMINOPHEN 500MG TAB 1000 MG PO (15:05)
[2024-03-25] MEDS: DICYCLOMINE 10MG CAPSULE 20 MG PO (16:20)
[2024-03-26 06:40] LABS: HCV Ab Non Reactive (Non Reactive)
[2024-03-27 21:12] LABS: Trichomonas Vaginalis, NAA Negative (Negative)
[2024-03-28 09:32] LABS: Neisseria gonorrhoeae, NAA Negative (Negative)
--- NOTE | 2024-03-28 17:52 | PC.NURSE ---
CHLAM/CG DISCUSSED WITH DR URBANO, DR URBANO SPOKE WITH PT, RX AND INSTRUCTIONS GIVEN
== END 2024-03-25 16:51 | disposition home or self-care (01) ==
LOC: UTC 12:03 → ER 12:42
PROVIDERS: Emergency Medicine; Nurse Practitioner; Emergency Provider Emergency Medicine; PCP Family Medicine
DX: R10.31 Right lower quadrant pain (principal); A56.00 Chlamydial infection of lower genitourinary tract, unspecified; R10.11 Right upper quadrant pain; R11.0 Nausea
CPT/HCPCS: 74177; 80053; 81001; 81003; 83690; 84702; 85025; 86803; 87086; 87389; 87491; 87591; 87661; 96374; 99284; J1885; Q9967

== ENCOUNTER 2024-06-15 11:41 | Outpatient (CLI) | payer OTHER, SELFPAY ==
--- NOTE | 2024-06-15 11:49 | XR_ITS ---
FINAL REPORT CLINICAL HISTORY: LOW BACK PAIN COMPARISON: None FINDINGS: SACROILIAC JOINTS SERIES Three views were obtained. There is no acute fracture or dislocation. The joint spaces appear normal. The visualized bony structures are well aligned. No soft tissue abnormality is seen. IMPRESSION: No acute bony abnormality. Reviewed, Interpreted and Dictated by Juan C Ramsey III, MD Transcribed by Cindy Gross Authenticated and [facility]
== END 2024-06-15 23:59 | disposition home or self-care (01) ==
LOC: RAD 11:45
PROVIDERS: PCP Internal Medicine Adolescent Medicine; Visit Provider Nurse Practitioner Family
DX: M54.50 Low back pain, unspecified (principal); M25.50 Pain in unspecified joint; G89.29 Other chronic pain
CPT/HCPCS: 72202

== ENCOUNTER 2024-06-18 17:19 | Emergency (ER) | payer OTHER, SELFPAY ==
[2024-06-18 18:15] VITALS: BP 102/51; PULSE 71; RESP 20; TEMP 36.6; O2SAT 98; BMI 32.0
--- NOTE | 2024-06-18 18:26 | EXP.UTC ---
Discharge Plan Disposition Patient Disposition: Home, Self-Care Condition: Good Prescriptions Prescriptions: New amoxicillin 500 mg capsule 500 mg PO TID 7 Days Qty: 21 0RF fluticasone propionate [Flonase Allergy Relief] 50 mcg/actuation spray,suspension 2 spray intranasal DAILY Qty: 16 0RF Rx Instructions: administer into each nostril No Action methocarbamol 500 mg tablet 500 - 1,000 mg PO HS Patient Comments: TAKE 1 OR 2 TABLET(S) BY MOUTH EVERY DAY AT BEDTIME NEEDED FOR MUSCLE SPASMS MAY CAUSE DROWSINESS diclofenac sodium 75 mg tablet,delayed release (DR/EC) 75 mg PO BID Patient Comments: TAKE ONE TABLET BY MOUTH TWICE DAILY --TAKE WITH FOOD-- Referrals Follow up/Referrals: Jeronimo Frey MD [Primary Care Provider] - See instructions Activity Restrictions/Add. Instructions Additional Instructions/Restrictions: *Monitor Temp, Over the counter Motrin or Tylenol as directed/as needed Tylenol every 4 hours and Motrin every 6 hours (as long as your family doctor has told you that you can take it) for fever or pain. and straight to ER if unable to lower temp less than 101.0 after medication given *Warm salt water gargles may help to soothe the throat *Throat Lozenges? *Warm fluids like tea with honey may help to soothe the throat? *Sleep elevated *Humidifier/Vaporizer Your throat swab was sent for culture. Those results are typically sent to your primary care. Be sure to follow up in 2-3 days with your family doctor/primary care physician if no improvement so they can review those result and treat if necessary. If you don?t have a primary care doctor, I recommend you get one but in the mean time, you will have to return to a walk in clinic Follow up IMMEDIATELY for new or worsening symptoms or no Noticeable improvement over the next 48-72 hours. 911 for difficulty breathing or swallowing Clinical Impressions Clinical Impression: Otitis media Instructions Patient Instructions: Middle Ear Infection, Amoxicillin Print Language Print Language: Portuguese Discharge ED Provider: Robyn Nascimento [facility] [place] H[place] General Stated complaint: vomiting, sore throat , ear pain Mode of Arrival: Ambulatory Source of Information: Patient Limitations: No Limitations Time Seen by Provider: 06/18/24 18:26 Description of Symptoms (Recalled from Triage Doc. by RN): PATIENT C/O SORE THROAT AND EARS BURNING X 5 DAYS HEENT Symptoms (Recalled from RN notes): Yes Resp Symptoms (Recalled from RN notes): No Skin Symptoms (Recalled from RN notes): No MS Symptoms (Recalled from RN notes): No Functional Status (Recalled from RN notes): WNL History of Present Illness Provider Complaint: Patient states that she has been having bilateral ear pain and burning and sore throat since Saturday States that she has been taking OTC medications but not helped States today she was still not feeling any better so she came in Related Data Home Medications ?Medication ?Instructions ?Recorded ?Confirmed diclofenac sodium 75 mg 75 mg PO BID 06/18/24 06/18/24 tablet,delayed release methocarbamol 500 mg tablet 500 - 1,000 mg PO HS 06/18/24 06/18/24 Previous Rx's ?Medication ?Instructions ?Recorded amoxicillin 500 mg capsule 500 mg PO TID 7 days #21 caps 06/18/24 fluticasone propionate 50 2 spray intranasal DAILY #16 grams 06/18/24 mcg/actuation nasal spray,suspension (Flonase Allergy Relief) Allergies Allergy/AdvReac Type Severity Reaction Status Date / Time No Known Allergies Allergy Verified 03/26/22 12:53 Worker's Comp Is this a Worker's Comp case?: No [facility] Disclaimer: The information contained in this section may have been updated after the patient was seen, as this information can be updated by other users. Medical History No significant past medical history Family History Other No significant family history Social History (Updated 08/06/22 @ 10:45 by Laney Stevenson RN) Smoking Status: Current every day smoker second hand exposure: No alcohol intake: never substance use type: denies use current occupational status: other Travel in the last 8 weeks: None Have you lived/traveled outside US in past 30 days?: No Contact w/someone who lives/traveled outside US past 30 days?: No Exposure to someone with infectious disease in past 14 days?: No Do you have a fever (greater than 100.4 F or 38 C)?: No Have you tested positive for COVID-19: No Exposed to someone with COVID-19 in past 14 days?: No Do you have a sore throat?: Yes Do you have a cough?: No Do you have any weakness?: No Do you have any diarrhea?: No Are you experiencing any unusual bleeding?: No Do you have any muscle aches/pain?: No Do you have any abdominal pain?: No Are you experiencing loss of taste or smell?: No ROS Obtained: Yes All systems reviewed & no additional complaints except as documented and Yes Systems reviewed as appropriate & no additional complaints except as documented Constitutional Constitutional: Reports system reviewed and no additional complaints, except as documented and Reports as per HPI ENT Ears, Nose, Mouth, and Throat: Reports system reviewed and no additional complaints, except as documented, Reports as per HPI, Reports otalgia and Reports sore throat Cardiovascular Cardiovascular: Reports system reviewed and no additional complaints, except as documented and Reports as per HPI Respiratory Respiratory: Reports system reviewed and no additional complaints, except as documented and Reports as per HPI Gastrointestinal Gastrointestingal: Reports system reviewed and no additional complaints, except as documented and as per HPI Physical Exam General General appearance: alert and in no apparent distress ENT ENT exam: Present mucous membranes moist Expanded ENT Exam TM/Canal exam: Left TM: erythema and Bilateral TM: bulging Throat exam: Present tonsillar erythema Respiratory Respiratory exam: Present normal lung sounds bilaterally; Absent respiratory distress or wheezes Cardiovascular Cardiovascular exam: Present regular rate, normal rhythm and normal heart sounds Abdominal Exam Abdominal exam: Present soft and normal bowel sounds; Absent distention or tenderness Neurological Exam Neurological exam: Present alert, oriented X3 and normal gait Medical Decision Making Medical Records Screening: Per USPSTF and CDC recommendations, given the prevalence of disease in our region, it is our hospital?s policy to screen for HIV and viral Hepatitis for all patients aged 18 and over and those with ongoing risk factors. John Inquiry Pt receiving controlled substance: No John was queried for this patient: No Vital Signs: 06/18/24 18:15 Temperature 97.9 F Temperature Source Oral Pulse Rate [Left Brachial] 71 Respiratory Rate 20 Blood Pressure [Left Arm] 102/51 L Blood Pressure Mean [Left Arm] 68 Blood Pressure Source [Left Arm] Automatic Cuff Blood Pressure Position [Left Arm] Sitting 02 Sat by Pulse Oximetry 98 Oxygen Delivery Method Room Air Lab Data Lab results reviewed: Yes I reviewed the patient's lab results.
[2024-06-18 18:31] LABS: UTC Strep Screen (Rapid) Negative (Negative)
[2024-06-18 18:33] VITALS: BP 102/51; PULSE 71; RESP 20; TEMP 36.6; O2SAT 98
== END 2024-06-18 18:36 | disposition home or self-care (01) ==
PROVIDERS: Emergency Provider Nurse Practitioner; PCP Internal Medicine Adolescent Medicine
DX: H66.93 Otitis media, unspecified, bilateral (principal)
CPT/HCPCS: 87880; 99213; G0381

== ENCOUNTER 2024-07-12 02:40 | Emergency (ER) | payer OTHER, SELFPAY ==
[2024-07-12 02:41] VITALS: BP 114/82; PULSE 88; RESP 16; TEMP 36.6; O2SAT 96; BMI 29.2
--- NOTE | 2024-07-12 02:58 | ED_ITS ---
Discharge Plan Disposition Patient Disposition: Home, Self-Care Condition: Good Prescriptions Prescriptions: No Action methocarbamol 500 mg tablet 500 - 1,000 mg PO HS Patient Comments: TAKE 1 OR 2 TABLET(S) BY MOUTH EVERY DAY AT BEDTIME NEEDED FOR MUSCLE SPASMS MAY CAUSE DROWSINESS diclofenac sodium 75 mg tablet,delayed release (DR/EC) 75 mg PO BID Patient Comments: TAKE ONE TABLET BY MOUTH TWICE DAILY --TAKE WITH FOOD-- amoxicillin 500 mg capsule 500 mg PO TID 7 Days Qty: 21 0RF fluticasone propionate [Flonase Allergy Relief] 50 mcg/actuation spray,suspension 2 spray intranasal DAILY Qty: 16 0RF Rx Instructions: administer into each nostril Referrals Follow up/Referrals: Jeronimo Frey MD [Primary Care Provider] - See instructions Activity Restrictions/Add. Instructions Additional Instructions/Restrictions: Please keep area clean and dry. Monitor for signs of infection. Please follow- up with your primary care provider. Please return to the emergency department if you develop any new or worsening symptoms or become concerned for your health. Clinical Impressions Clinical Impression: Laceration of left wrist Qualifiers: Encounter type: initial encounter Qualified Code(s): S61.512A - Laceration without foreign body of left wrist, initial encounter Instructions Patient Instructions: DI for Laceration Repair Print Language Print Language: Maori Discharge ED Provider: Reggie Parada Adult HPI General Chief complaint: Wound/Laceration Stated [place]: [place] [address] cut on left wrist Time Seen by Provider: 07/12/24 02:40 Mode of Arrival: Ambulatory Source of Information: Patient Limitations: No Limitations Description of Symptoms (Recalled from ER Triage Doc. by RN): Patient reports she was knocking on a window and it shattered and her left had went through the glass, causing a laceration on the left wrist. History of Present Illness HPI narrative: 19-year-old female without significant past medical history presents for laceration to her left wrist. She was knocking on a window when it broke and she cut herself a little bit. She reports it was absolutely not on purpose. She reports that blood little bit before coming. Not sure when her last tetanus shot was. Related Data Home Medications ?Medication ?Instructions ?Recorded ?Confirmed diclofenac sodium 75 mg 75 mg PO BID 06/18/24 06/18/24 tablet,delayed release methocarbamol 500 mg tablet 500 - 1,000 mg PO HS 06/18/24 06/18/24 Previous Rx's ?Medication ?Instructions ?Recorded amoxicillin 500 mg capsule 500 mg PO TID 7 days #21 caps 06/18/24 fluticasone propionate 50 2 spray intranasal DAILY #16 grams 06/18/24 mcg/actuation nasal spray,suspension (Flonase Allergy Relief) Allergies Allergy/AdvReac Type Severity Reaction Status Date / Time No Known Allergies Allergy Verified 03/26/22 12:53 [facility] Disclaimer: The information contained in this section may have been updated after the patient was seen, as this information can be updated by other users. Medical History No significant past medical history Family History Other No significant family history Social History (Updated 08/06/22 @ 10:45 by Laney Stevenson RN) Smoking Status: Current every day smoker second hand exposure: No alcohol intake: never substance use type: denies use current occupational status: other Travel in the last 8 weeks: None Have you lived/traveled outside US in past 30 days?: No Contact w/someone who lives/traveled outside US past 30 days?: No Exposure to someone with infectious disease in past 14 days?: No Do you have a fever (greater than 100.4 F or 38 C)?: No Have you tested positive for COVID-19: No Exposed to someone with COVID-19 in past 14 days?: No Do you have a sore throat?: No Do you have a cough?: No Do you have any weakness?: No Do you have any diarrhea?: No Are you experiencing any unusual bleeding?: No Do you have any muscle aches/pain?: No Do you have any abdominal pain?: No Are you experiencing loss of taste or smell?: No Other Medical History Have you received the Pneumonia Vaccine: No ROS Obtained: Yes All systems reviewed & no additional complaints except as documented Physical Exam General General appearance: alert and in no apparent distress Head Head exam: atraumatic and normocephalic Eye Eye exam: Present normal appearance, PERRL and EOMI ENT ENT exam: Present normal oropharynx and normal external ear exam Neck Neck exam: Present normal inspection and full ROM Chest Chest inspection: Present normal inspection and symmetric chest wall rise; Absent tenderness Respiratory Respiratory exam: Present normal lung sounds bilaterally; Absent respiratory distress Cardiovascular Cardiovascular exam: Present regular rate and normal rhythm Abdominal Exam Abdominal exam: Present soft; Absent distention, tenderness or guarding Extremities Exam Extremities exam: Present other (Normal strength sensation and range of motion of the left hand. There is a approximately 0.5 cm laceration to the left lateral volar wrist); Absent edema or joint swelling Back Exam Back exam: Present normal inspection; Absent tenderness Neurological Exam Neurological exam: Present alert and oriented X3; Absent motor sensory deficit Psychiatric Psychiatric exam: Present normal affect and normal mood Skin Skin exam: Present warm, dry and normal color Lymphatic Lymphatic Findings: no adenopathy Medical Decision Making Medical Records Medical records reviewed: Yes I reviewed the patient's medical records. Screening: Per USPSTF and CDC recommendations, given the prevalence of disease in our region, it is our hospital?s policy to screen for HIV and viral Hepatitis for all patients aged 18 and over and those with ongoing risk factors. John Inquiry Pt receiving controlled substance: No John was queried for this patient: No Vital Signs: 07/12/24 02:41 07/12/24 03:10 Temperature 97.9 F 97.9 F Temperature Source Oral Oral Pulse Rate 72 Pulse Rate [Right Radial] 88 Respiratory Rate 16 16 Blood Pressure 107/72 L Blood Pressure [Right Arm] 114/82 Blood Pressure Mean [Right Arm] 92 Blood Pressure Source Automatic Cuff Blood Pressure Source [Right Arm] Automatic Cuff Blood Pressure Position Supine Blood Pressure Position [Right Arm] Supine 02 Sat by Pulse Oximetry 96 Oxygen Delivery Method Room Air Room Air Lab Data Lab results reviewed: Yes I reviewed the patient's lab results. Orders (Tests/Meds): ED MEDICATIONS Discontinued Medications Generic Name Dose Route Start Last Admin Trade Name Freq PRN Reason Stop Dose Admin Tetanus/Reduced Diphtheria/Acell Pertussis 0.5 ml 07/12/24 02:53 07/12/24 03:01 Tet/Diphth/Pert-Adult 0.5ml Syringe IM 07/12/24 02:54 0.5 ml .ONCE ONE Administration Medical Decision Narrative: 19-year-old female presents with a small laceration to the left volar wrist. Hemostatic. Wound fully explored, no evidence of retained glass. Radiograph was considered but due to history given exam. Wound was copiously irrigated and repaired with skin glue and Steri-Strips. Given instructions regarding symptomatic care. Patient was discharged stable condition after tetanus shot. Procedures Risk/Benefits of Procedure(s) Were Explained: Yes Laceration Laceration 1: Site: upper extremity Side (If applicable): left Description: linear Depth: involves subcutaneous layer Pre-repair: wound explored, irrigated extensively and deep structures intact Skin layer closed with: Dermabond and other (Steri-Strips) Critical Care Critical Care Time Critical Care Time: No
[2024-07-12] MEDS: TET/DIPHTH/PERT-ADULT 0.5ML SYRINGE 0.5 ML IM (03:01)
[2024-07-12 03:10] VITALS: BP 107/72; PULSE 72; RESP 16; TEMP 36.6; O2SAT 98
== END 2024-07-12 03:11 | disposition home or self-care (01) ==
PROVIDERS: Emergency Provider Emergency Medicine; PCP Internal Medicine Adolescent Medicine
DX: S61.512A Laceration without foreign body of left wrist, initial encounter (principal); M25.532 Pain in left wrist; Z23 Encounter for immunization; W25.XXXA Contact with sharp glass, initial encounter; Y93.89 Activity, other specified; Y92.9 Unspecified place or not applicable
CPT/HCPCS: 90471; 90715; 99283

== ENCOUNTER 2025-05-14 11:05 | Outpatient (CLI) | payer SELFPAY ==
[2025-05-14 16:46] LABS: Microscopic, Urine URINE MICROSCOPIC (MICROSCOPIC)
[2025-05-14 17:02] LABS: Bilirubin,Urine Negative (Negative); Color,Urine YELLOW (Yellow); Glucose,Urine (UA) Negative (Negative); Ketones,Urine Negative (Negative); Leukocyte Esterase,Urine 2+ (Negative); PH,Urine 6.0 (5.0-8.5); Protein,Urine TRACE (Negative); Specific Gravity, Urine 1.025 (1.005-1.030); Urobilinogen,Urine 0.2 EU/dl (0.2)
[2025-05-14 17:17] LABS: Bacteria,Urine 2+ /lpf; WBC,Urine TNTC #/hpf (0-3)
--- OUTSIDE RECORDS SUMMARY | 2025-05-18 11:13 | XMS_ITS | Clinical Summary ---
Author Organization [facility] Address [address] [id number] Care Team Providers Care Medical Terminologist Name Role Phone Berenice Myers Primary Care Provider [phone] Allergies No known active allergies Medications methocarbamol (Robaxin) 500 MG tablet 06/15/2024 Active diclofenac (Voltaren) 75 MG EC tablet Take 1 tablet (75 mg) by mouth as needed in the morning and 1 tablet (75 mg) as needed in the evening. 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 Myopia of right eye 02/26/2017 Behavior concern 09/17/2016 Dyslexia 09/17/2016 Mixed receptive-expressive language disorder Wears glasses 09/17/2016 Insulin resistance 05/18/2016 Weight gain 05/18/2016 Acanthosis nigricans 05/14/2016 Rage attacks 03/14/2016 Vitamin D deficiency 03/14/2016 Depression 02/22/2016 Labial adhesions 02/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 Precocious puberty 02/08/2016 Immunizations Immunization Administration Dates Next Due DTaP 06/17/2008, 6,01/26/2005,10/20,2004 HPV 9-Valent 02/10/2018,11/22/2015 Hep A, ped/adol, 2 dose 02/10/2018,01/02/2013 Hep B, Adolescent or Pediatric 01/26/2005,2004,2004 IPV 06/17/2008, 5,2004,08/03 Influenza, injectable, quadr ivalent, preservative free 05/17/2016 MMR 06/17/2008,09/06/2005 Meningococcal MCV4O 11/22/2015 Tdap 11/22/2015 Varicella 01/02/2013,06/21/2005 Family History * Patient is adopted Medical History Relation Name Comments Drug abuse Father Diabetes Maternal Grandfather ADD / ADHD Mother Bipolar disorder Mother Drug abuse Mother Hypertension Other ADD / ADHD Sibling Malig Hyperthermia Neg Hx Relation Name Status Comments Father Maternal Grandfather Mother Other Sibling Social History Tobacco Use Types Packs/Day Years Used Date Smoking Tobacco: Never Passive Smoke Exposure: Never Smokeless Tobacco: Never Tobacco Cessation:Counseling Given: Not Answered Alcohol Use Standard Drinks/Week Comments Never 0 (1 standard drink = 0.6 oz pur e alcohol) Comments No Sex and Gender Information Value Date Recorded Sex Assigned at Not on file Legal Sex Female 7:48 PM EDT Gender Identity Not on file Sexual Orientation Not on file Last Filed Vital Signs Vital Sign Reading Time Taken Comments Blood Pressure 101/65 09/18/2024 1:15 PM EDT Pulse 66 09/18/2024 1:15 PM EDT Temperature 36.2 C (97.2 F) 09/18/2024 12:50 PM EDT Respiratory Rate 13 09/18/2024 1:15 PM EDT Oxygen Saturation 100% 09/18/2024 1:15 PM EDT Inhaled Oxygen Concentration - - Weight 82.3 kg (181 lb 7 oz) 09/18/2024 9:46 AM EDT Height 157.5 cm (5' 2 ) 09/18/2024 9:46 AM EDT Body Mass Index 33.19 09/18/2024 9:46 AM EDT Plan of Treatment Health Maintenance Due Date Last Done Comments [facility]-Chlamydia and Gonorrhea Screening 2004 [facility]-Depression Screening 2004 [facility]-HIV Screening 2004 [facility]-Hepatitis C Screening 2004 [facility]-/Child/Adol SDOH Screenings 2004 [facility]- SDOH Screenings 2022 [facility]-Adult SDOH Screenings 2022 [id number] Vaccine ( season) 2025 [facility]-Influenza Vaccine (#1) 2025 05/17/2016 [facility]-DTaP,Tdap,and Td Vaccines (8 - Td or Tdap) 07/12/2034 07/12/2024, 11/22/2015, 06/17/2008, Additional history exists [facility]-Zoster Vaccines (1 of 2) 2054 01/02/2013, 06/21/2005 [facility]-Hepatitis B Vaccines Completed 005, 2004, 2004 [facility]-HIB Vaccines Completed 06/21/2005, , 2004 [facility]-IPV Vaccines Completed 06/17/2008, , 2004, Additional history exists [facility]-Varicella Vaccines Completed 01/02/2013, 2004 HPV Vaccines Completed 02/10/2018, 11/22/2015 [facility]-Hepatitis A Vaccines Completed 02/10/2018, 12/07 [facility]-Obesity Intervention Completed 09/13/2022, 08/2022 [facility]-Pneumococcal Vaccine: Pediatrics (0 to 5 Years) and At-Risk Patients (6 to 49 Years) Aged Out No longer eligible based on patient's age to complete this topic [facility]-Rotavirus Vaccines Aged Out No lo nger eligible based on patient's age to complete this topic Insurance Se [place] KELLIE BROWN [id number] AETNA [facility] MEDICAID [employer] MEDICAID Care Teams Medical Terminologist Relationship Specialty Start Date End Date Berenice Myers PA [address] [place] [address] PCP - General 11/18/20
== END 2025-05-14 23:59 ==
LOC: LAB.DROPOF 05-18 11:05
PROVIDERS: PCP Internal Medicine Adolescent Medicine; Visit Provider Nurse Practitioner
DX: N39.0 Urinary tract infection, site not specified (principal)
CPT/HCPCS: 81001; 87086; 87088; 87186

== ENCOUNTER 2025-06-13 14:42 | Emergency (ER) | payer SELFPAY ==
[2025-06-13 14:53] VITALS: BP 128/72; PULSE 76; RESP 18; TEMP 37.2; O2SAT 99; BMI 32.1
--- OUTSIDE RECORDS SUMMARY | 2025-06-13 15:09 | XMS_ITS | Clinical Summary ---
Author Organization [facility] Address [address] [id number] Care Team Providers Care Business Operations Coordinator Name Role Phone [place] Analisa WARREN Primary Care Provider [phone] Allergies No known active allergies Medications methocarbamol (Robaxin) 500 MG tablet 06/15/2024 Active diclofenac (Voltaren) 75 MG EC tablet Take 1 tablet (75 mg) by mouth as needed in the morning and 1 tablet (75 mg) as needed in the evening. 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 Myopia of right eye 02/26/2017 Behavior concern 09/17/2016 Dyslexia 09/17/2016 Mixed receptive-expressive language disorder Wears glasses 09/17/2016 Insulin resistance 05/18/2016 Weight gain 05/18/2016 Acanthosis nigricans 05/14/2016 Rage attacks 03/14/2016 Vitamin D deficiency 03/14/2016 Depression 02/22/2016 Labial adhesions 02/22/2016 Precocious puberty 02/08/2016 Resolved Problems Problem Noted Date Diagnosed Date Resolved Date History of strabismus surgery 05/26/2024 05/30/2025 Immunizations Immunization Administration Dates Next Due DTaP [...] [facility]-HIV Screening 2004 [facility]-Hepatitis C Screening 2004 [facility]-Infant/Child/Adol SDOH Screenings 2004 [facility]- SDOH Screenings 2022 [facility]-Adult SDOH Screenings 2022 [id number] Vaccine ( season) 2025 [facility]-Influenza Vaccine (#1) 2025 05/17/2016 [facility]-Pap Smear 2025 [facility]-DTaP,Tdap,and Td Vaccines (8 - Td or [...] patient's age to complete this topic Insurance AETNA [facility] MEDICAID [facility] A[employer]NA [employer] MEDICAID Care Teams Business Operations Coordinator Relationship Specialty Start Date End Date Berenice Myers PA [address] [place] [address] PCP - General 11/18/20
--- NOTE | 2025-06-13 15:17 | ED_ITS ---
<Statement entered by Stevenson Trujillo MD - 06/13/25 16:59> I was consulted by the SATYA, and we discusssed the complexity of the problems being adressed. I approved the treatment and management plan for this patient's care in the Emergency Department, thus performing a substantive portion of the medical decision making. Stevenson Trujillo MD Discharge Plan Disposition Patient Disposition: Home, Self-Care Prescriptions Prescriptions: New cephalexin 500 mg capsule 1,000 mg PO BID 7 Days Qty: 28 0RF Referrals Follow up/Referrals: Jeronimo Frey MD [Primary Care Provider, Internal Medicine] - See instructions Activity Restrictions/Add. Instructions Additional Instructions/Restrictions: Today you were evaluated in the emergency department for a laceration. You had 6 sutures placed in your left wrist, please return to the ED in 7 days to have these removed. Please take the bandage off in 24 hours and leave exposed to air. Take your antibiotics as directed. If you notice increased redness, streaking, drainage, return to the ED. Clinical Impressions Clinical Impression: Laceration Instructions Patient Instructions: DI for Laceration Repair Print Language Print Language: Cape Verdean Discharge ED Provider: Stevenson Trujillo General Adult HPI General Chief complaint: Wound/Laceration Stated complaint: AO cut on left wrist. 06/12. Time Seen by Provider: 06/13/25 15:10 Mode of Arrival: Ambulatory Source of Information: Patient Description of Symptoms (Recalled from ER Triage Doc. by RN): Pt cutt her left wrist around 0200 this morning. Pt states she isnt sure what she cutt it on, but she thinks it was metal. PT was intoxicated at the time of injury, details are unknown. History of Present Illness HPI narrative: patient is a 20-year-old female with no significant PMHx who presents to the ED with complaints of left wrist laceration that occurred last night. Patient states that she does not remember exactly what happened, and had been drinking alcohol, at some point during the night injured her left wrist causing a laceration. Related Data Previous Rx's ?Medication ?Instructions ?Recorded cephalexin 500 mg capsule 1,000 mg (2 x 500 mg) PO BID 7 06/13/25 days #28 caps Allergies Allergy/AdvReac Type Severity Reaction Status Date / Time No Known Allergies Allergy Verified 05/14/25 11:53 [facility] Disclaimer: The information contained in this section may have been updated after the patient was seen, as this information can be updated by other users. Medical History (Updated 06/13/25 @ 15:56 by Radha Lyles APRN) UTI (urinary tract infection) Irregular periods PCOS (polycystic ovarian syndrome) No significant past medical history Surgical History History of kidney surgery History of eye surgery Family History Other No significant family history Social History Smoking Status: Current every day smoker second hand exposure: No alcohol intake: current alcohol intake frequency: holidays/special occasions only substance use type: denies use current occupational status: unemployed Travel in the last 8 weeks?: None household members: significant other housing: house marital status: education level: high school Have you lived/traveled outside [place] in past 30 days?: No Contact w/someone who lives/traveled outside US past 30 days?: No Exposure to someone with infectious disease in past 14 days?: No Do you have a fever (greater than 100.4 F or 38 C)?: No Have you tested positive for COVID-19?: No Exposed to someone with COVID-19 in past 14 days?: No Do you have a sore throat?: No Do you have a cough?: No Do you have any weakness?: No Do you have any diarrhea?: No Are you experiencing any unusual bleeding?: No Do you have any muscle aches/pain?: No Do you have any abdominal pain?: No Are you experiencing loss of taste or smell?: No Other Medical History Have you received the Pneumonia Vaccine: No ROS Obtained: Yes Systems reviewed as appropriate & no additional complaints except as documented Physical Exam General General appearance: alert Eye Eye exam: Present PERRL Respiratory Respiratory exam: Present normal lung sounds bilaterally Cardiovascular Cardiovascular exam: Present regular rate Abdominal Exam Abdominal exam: Present soft Extremities Exam Extremities exam: Present full ROM Neurological Exam Neurological exam: Present alert and oriented X3; Absent motor sensory deficit Psychiatric Psychiatric exam: Present normal affect Skin Skin exam: Present warm, dry and other (2.5 cm laceration noted to anterior L wrist, bleeding controlled, jagged edges ) Medical Decision Making Medical Records Screening: Per USPSTF and CDC recommendations, given the prevalence of disease in our region, it is our hospital?s policy to screen for HIV and viral Hepatitis for all patients aged 18 and over and those with ongoing risk factors. John Inquiry Pt receiving controlled substance: No Vital Signs: 06/13/25 14:53 06/13/25 15:30 Temperature 98.9 F Temperature Source Oral Pulse Rate 71 Pulse Rate [Right] 76 Respiratory Rate 18 Blood Pressure [Right Arm] 128/72 Blood Pressure Mean [Right Arm] 90 Blood Pressure Source [Right Arm] Automatic Cuff Blood Pressure Position [Right Arm] Sitting 02 Sat by Pulse Oximetry 99 96 Oxygen Delivery Method Room Air Medical Decision Narrative: In summary, patient is a 20-year-old female with no significant PMHx who presents to the ED with complaints of left wrist laceration that occurred last night. Patient states that she does not remember exactly what happened, and had been drinking alcohol, at some point during the night injured her left wrist causing a laceration. Denies any other injuries. Denies fever, chills, headache, back pain, chest pain. At the time of arrival, laceration is nonbleeding, mild erythema around laceration 2.5 cm. Procedure performed, 6 sutures of 5-0 Ethilon placed in left wrist, anterior aspect. Cleaned with iodine and rinsed with Hibiclens prior to procedure. Patient tolerated well. Applied nonadherent Renetta wrap. Provided wound care instructions to patient and partner. Discussed with patient to take cephalexin as directed, we discussed signs and symptoms of infection, discussed following up within 7 days. Return to the ED for worsening of condition. Critical Care Critical Care Time Critical Care Time: No
[2025-06-13 15:30] VITALS: PULSE 71; O2SAT 96
[2025-06-13 16:00] VITALS: PULSE 74; O2SAT 98
[2025-06-13 16:36] VITALS: BP 128/72; PULSE 74; RESP 18; TEMP 37.2; O2SAT 98
== END 2025-06-13 16:38 | disposition home or self-care (01) ==
PROVIDERS: Emergency Provider Student in an Organized Health Care Education/Training Program; PCP Internal Medicine Adolescent Medicine
DX: S61.512A Laceration without foreign body of left wrist, initial encounter (principal); W26.8XXA Contact with other sharp object(s), not elsewhere classified, initial encounter
CPT/HCPCS: 12001; 99282; 99283

== ENCOUNTER 2025-06-27 17:04 | Emergency (ER) | payer SELFPAY ==
[2025-06-27 17:04] VITALS: BP 110/65; PULSE 71; RESP 19; TEMP 36.7; O2SAT 99; BMI 31.1
[2025-06-27 17:10] VITALS: BP 99/60; PULSE 98; RESP 18; TEMP 37.1; O2SAT 98
--- NOTE | 2025-06-27 17:14 | HMH.EDGENADL ---
Discharge Plan Disposition Patient Disposition: Home, Self-Care Condition: Good Prescriptions Prescriptions: No Action No Known Home Medications Referrals Follow up/Referrals: Jeronimo Frey MD [Primary Care Provider, Internal Medicine] - See instructions Activity Restrictions/Add. Instructions Additional Instructions/Restrictions: You were seen for a suture removal. Please return if you have pain, bleeding, redness or drainage. Clinical Impressions Clinical Impression: Visit for suture removal Instructions Patient Instructions: DI for Suture Removal Print Language Print Language: Samoan Discharge ED Provider: Viridiana Gasca General Adult HPI <BRIANA Mills - Last Filed: 06/27/25 17:20> General Chief complaint: Skin/Abscess/Foreign Body Stated complaint: suture removal Time Seen by Provider: 06/27/25 17:04 Mode of Arrival: Ambulatory Description of Symptoms (Recalled from ER Triage Doc. by RN): pt presents to ED for suture removal. pt was registered as nurse visit, but has to be seen by a provider. History of Present Illness HPI narrative: Patient presents for suture removal. She denies any redness, drainage, bleeding, pain. Denies any fevers or vomiting. Reports her tetanus is up-to-date complaint: Suture removal Onset (ago): week(s) (2) Location: left and upper extremity Radiation: non-radiation Relieving factors: none Exacerbating factors: none Associated symptoms: denies other symptoms Treatments prior to arrival: none Related Data Home Medications ?Medication ?Instructions ?Recorded ?Confirmed No Known Home Medications 06/24/25 06/24/25 Allergies Allergy/AdvReac Type Severity Reaction Status Date / Time No Known Allergies Allergy Verified 06/24/25 17:57 PFSH <BRIANA Mills - Last Filed: 06/27/25 17:20> [facility] Disclaimer: The information contained in this section may have been updated after the patient was seen, as this information can be updated by other users. Medical History (Updated 06/27/25 @ 17:08 by BRIANA Mills) UTI (urinary tract infection) Irregular periods PCOS (polycystic ovarian syndrome) No significant past medical history Surgical History History of kidney surgery History of eye surgery Family History Other No significant family history Social History Smoking Status: Never smoker second hand exposure: No alcohol intake: current alcohol intake frequency: holidays/special occasions only substance use type: denies use current occupational status: unemployed Travel in the last 8 weeks?: None household members: significant other housing: house marital status: education level: high school Have you lived/traveled outside US in past 30 days?: No Contact w/someone who lives/traveled outside US past 30 days?: No Exposure to someone with infectious disease in past 14 days?: No Do you have a fever (greater than 100.4 F or 38 C)?: No Have you tested positive for COVID-19?: No Exposed to someone with COVID-19 in past 14 days?: No Do you have a sore throat?: No Do you have a cough?: No Do you have any weakness?: No Do you have any diarrhea?: No Are you experiencing any unusual bleeding?: No Do you have any muscle aches/pain?: No Do you have any abdominal pain?: No Are you experiencing loss of taste or smell?: No Other Medical History Have you received the Flu Vaccine for this season: No Have you received the Pneumonia Vaccine: No <BRIANA Mills - Last Filed: 06/27/25 17:20> ROS Obtained: Yes Systems reviewed as appropriate & no additional complaints except as documented Physical Exam <BRIANA Mills - Last Filed: 06/27/25 17:20> General General appearance: alert and in no apparent distress Head Head exam: atraumatic and normocephalic Eye Eye exam: Present normal appearance and EOMI Chest Chest inspection: Present symmetric chest wall rise Respiratory Respiratory exam: Present normal lung sounds bilaterally; Absent wheezes or stridor Cardiovascular Cardiovascular exam: Present regular rate and normal rhythm; Absent systolic murmur Extremities Exam Extremities exam: Present full ROM Neurological Exam Neurological exam: Present alert and oriented X3 Psychiatric Psychiatric exam: Present normal affect and normal mood Skin Skin exam: Present warm, dry and other (Left anterior wrist has 2.5 cm healing laceration, sutures have been removed by nursing staff. She has slightly decreased sensation focally, however distal sensation is intact. 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 John Inquiry Pt receiving controlled substance: No Vital Signs: 06/27/25 17:04 06/27/25 17:10 Temperature 98.0 F 98.7 F Temperature Source Oral Oral Pulse Rate 98 H Pulse Rate [Left Radial] 71 Respiratory Rate 19 18 Blood Pressure 99/60 L Blood Pressure [Right Arm] 110/65 Blood Pressure Mean [Right Arm] 80 Blood Pressure Source Automatic Cuff Blood Pressure Position Sitting 02 Sat by Pulse Oximetry 99 Oxygen Delivery Method Room Air Medical Decision Narrative: In summary patient is a 20-year-old female who presents the emergency department for evaluation of suture removal. Patient is hemodynamically stable upon arrival, afebrile. Healing laceration on exam. Sutures were removed by nursing staff prior to my evaluation. The wound is healing well without evidence of cellulitis, she has normal strength, neurovascularly intact. Given return precautions. Social determinants of health: Given the patient is undomiciled increased complexity. Given that patient has polysubstance abuse compounds all aspects of care. <Viridiana Gasca MD - Last Filed: 06/27/25 17:31> Vital Signs: 06/27/25 17:04 06/27/25 17:10 Temperature 98.0 F 98.7 F Temperature Source Oral Oral Pulse Rate 98 H Pulse Rate [Left Radial] 71 Respiratory Rate 19 18 Blood Pressure 99/60 L Blood Pressure [Right Arm] 110/65 Blood Pressure Mean [Right Arm] 80 Blood Pressure Source Automatic Cuff Blood Pressure Position Sitting 02 Sat by Pulse Oximetry 99 Oxygen Delivery Method Room Air Medical Decision Narrative: In summary patient is a 20-year-old female who presents the emergency department for evaluation of suture removal. Patient is hemodynamically stable upon arrival, afebrile. Healing laceration on exam. Sutures were removed by nursing staff prior to my evaluation. The wound is healing well without evidence of cellulitis, she has normal strength, neurovascularly intact. Given return precautions. Social determinants of health: Given the patient is undomiciled increased complexity. Given that patient has polysubstance abuse compounds all aspects of care. I was consulted by the SATYA, and we discussed the complexity of problems being addressed. I approved the treatment and management plan for this patient's care in the emergency department, thus performing a substantial portion of the medical decision making. Viridiana Gasca MD Critical Care <BRIANA Mills - Last Filed: 06/27/25 17:20> Critical Care Time Critical Care Time: No
--- OUTSIDE RECORDS SUMMARY | 2025-06-27 17:17 | XMS_ITS | Clinical Summary ---
Author Organization [facility] Address [address] [id number] Care Team Providers Care Botanical Technical Officer Name Role Phone Louis Washakie Analisa WARREN Primary Care Provider [phone] Allergies No known active allergies Medications methocarbamol [...] SDOH Screenings 2022 [facility]-Adult SDOH Screenings 2022 [id number] Vaccine ( season) 2025 [facility]-Influenza Vaccine (#1) [...] age to complete this topic Insurance [facility]NA [facility] MEDICAID [facility] [employer]NA [employer] MEDICAID Care Teams Botanical Technical Officer Relationship Specialty Start Date End Date Berenice Myers PA [address] [place] [address] PCP - General 11/18/20
== END 2025-06-27 17:40 | disposition home or self-care (01) ==
LOC: ER 17:16
PROVIDERS: Emergency Provider Student in an Organized Health Care Education/Training Program; PCP Internal Medicine Adolescent Medicine
DX: Z48.02 Encounter for removal of sutures (principal)
CPT/HCPCS: 99281; 99282